=== PATIENT | female | born 1935 | race Caucasian/White ===

== ENCOUNTER → 2021-08-26 | Outpatient (CLI) | payer OTHER | LOC: HYPER 08:38 | PROVIDERS: ATTEND Emergency Medicine | DX: I89.0 Lymphedema, not elsewhere classified (principal); L03.115 Cellulitis of right lower limb; L03.116 Cellulitis of left lower limb; G90.09 Other idiopathic peripheral autonomic neuropathy; M79.662 Pain in left lower leg; M79.661 Pain in right lower leg; H35.30 Unspecified macular degeneration; M19.90 Unspecified osteoarthritis, unspecified site; R60.0 Localized edema; M41.9 Scoliosis, unspecified; R20.0 Anesthesia of skin; F41.9 Anxiety disorder, unspecified; F32.9 Major depressive disorder, single episode, unspecified; Z90.49 Acquired absence of other specified parts of digestive tract; Z96.641 Presence of right artificial hip joint; Z79.899 Other long term (current) drug therapy; Z90.89 Acquired absence of other organs; Z98.890 Other specified postprocedural states ==

== ENCOUNTER → 2021-09-03 | Outpatient (CLI) | payer OTHER | LOC: HYPER 10:47 | PROVIDERS: ATTEND Emergency Medicine | DX: I89.0 Lymphedema, not elsewhere classified (principal); L03.115 Cellulitis of right lower limb; L03.116 Cellulitis of left lower limb; R60.0 Localized edema; G90.09 Other idiopathic peripheral autonomic neuropathy; H35.30 Unspecified macular degeneration; G62.9 Polyneuropathy, unspecified; M19.90 Unspecified osteoarthritis, unspecified site; M41.9 Scoliosis, unspecified; E66.9 Obesity, unspecified; F41.9 Anxiety disorder, unspecified; F32.9 Major depressive disorder, single episode, unspecified; Z68.26 Body mass index [BMI] 26.0-26.9, adult; Z98.890 Other specified postprocedural states; Z79.899 Other long term (current) drug therapy; Z90.49 Acquired absence of other specified parts of digestive tract ==

== ENCOUNTER → 2021-09-23 | Outpatient (CLI) | payer OTHER | LOC: SJCVCIMAG 07:12 | PROVIDERS: ATTEND Emergency Medicine | DX: I87.2 Venous insufficiency (chronic) (peripheral) (principal); R22.40 Localized swelling, mass and lump, unspecified lower limb ==

== ENCOUNTER → 2021-09-23 | Outpatient (CLI) | payer OTHER | LOC: HYPER 11:05 | PROVIDERS: ATTEND Emergency Medicine | DX: I89.0 Lymphedema, not elsewhere classified (principal); L03.115 Cellulitis of right lower limb; L03.116 Cellulitis of left lower limb; G90.09 Other idiopathic peripheral autonomic neuropathy; R60.0 Localized edema; H35.30 Unspecified macular degeneration; M19.90 Unspecified osteoarthritis, unspecified site; M41.9 Scoliosis, unspecified; E66.9 Obesity, unspecified; F32.9 Major depressive disorder, single episode, unspecified; F41.9 Anxiety disorder, unspecified; Z68.26 Body mass index [BMI] 26.0-26.9, adult; Z90.49 Acquired absence of other specified parts of digestive tract; Z96.641 Presence of right artificial hip joint; Z79.899 Other long term (current) drug therapy; Z98.890 Other specified postprocedural states ==

== ENCOUNTER → 2021-10-07 | Outpatient (CLI) | payer OTHER | LOC: HYPER 10:15 | PROVIDERS: ATTEND Emergency Medicine | DX: I89.0 Lymphedema, not elsewhere classified (principal); L03.115 Cellulitis of right lower limb; L03.116 Cellulitis of left lower limb; G90.09 Other idiopathic peripheral autonomic neuropathy; R60.0 Localized edema; H35.30 Unspecified macular degeneration; M19.90 Unspecified osteoarthritis, unspecified site; M41.9 Scoliosis, unspecified; E66.9 Obesity, unspecified; F41.9 Anxiety disorder, unspecified; F32.9 Major depressive disorder, single episode, unspecified; Z68.26 Body mass index [BMI] 26.0-26.9, adult; Z98.890 Other specified postprocedural states; Z79.899 Other long term (current) drug therapy; Z90.49 Acquired absence of other specified parts of digestive tract ==

== ENCOUNTER → 2021-10-27 | Outpatient (CLI) | payer OTHER | LOC: HYPER 11:30 | PROVIDERS: ATTEND Emergency Medicine | DX: I89.0 Lymphedema, not elsewhere classified (principal); L03.115 Cellulitis of right lower limb; L03.116 Cellulitis of left lower limb; R60.0 Localized edema; G90.09 Other idiopathic peripheral autonomic neuropathy; H35.30 Unspecified macular degeneration; M19.90 Unspecified osteoarthritis, unspecified site; M41.9 Scoliosis, unspecified; E66.9 Obesity, unspecified; F41.9 Anxiety disorder, unspecified; F32.9 Major depressive disorder, single episode, unspecified; Z68.26 Body mass index [BMI] 26.0-26.9, adult; Z98.890 Other specified postprocedural states; Z79.899 Other long term (current) drug therapy; Z90.49 Acquired absence of other specified parts of digestive tract ==